=== PATIENT | male | born 1975 | race African-American/Black ===

== ENCOUNTER 2017-12-20 05:55 | Emergency (ER) | payer SELFPAY ==
[~2017-12-20] VITALS: Ht 170.2 cm; Wt 73.0 kg
[2017-12-20] MEDS ORDERED: BACITRACIN ZINC OINT UDPKT TOP ONE (06:30)
[2017-12-20] MEDS ORDERED: LIDOCAINE HCL/PF 1% 10 MG/ML 5ML VIAL IJ ONE (06:30)
[2017-12-20] MEDS ORDERED: IBUPROFEN 800MG TABLET PO ONE (06:30)
[2017-12-20 09:19] VITALS: BP 124/75
== END 2017-12-20 09:21 | disposition home or self-care (01) ==
LOC: ER 05:55
DX: S51.822A Laceration with foreign body of left forearm, initial encounter (principal); X99.0XXA Assault by sharp glass, initial encounter; Y93.89 Activity, other specified; Y92.89 Other specified places as the place of occurrence of the external cause; I10 Essential (primary) hypertension; F17.210 Nicotine dependence, cigarettes, uncomplicated; F12.90 Cannabis use, unspecified, uncomplicated
CPT/HCPCS: 12004; 73090; 99284; J3490; Z7610